=== PATIENT | male | born 1935 | race Caucasian/White ===

== ENCOUNTER → 2018-06-27 | Outpatient (REF) | payer MEDICARE ==
[2018-06-27 18:18] LABS: TOTAL PROTEIN,RANDOM URINE 25.2 MG/DL (0.0-12.0)
== END ==
LOC: M LAB REF 17:20
DX: N18.3 Chronic kidney disease, stage 3 (moderate) (principal); R80.1 Persistent proteinuria, unspecified
CPT/HCPCS: 84156

== ENCOUNTER → 2019-02-07 | Outpatient (REF) | payer MEDICARE ==
[~2019-02-07] MED LIST: ASPI-1 PO; DOCU10CA PO; LOSA25TA14 PO; METO1TAB32 PO; MIRA3350 PO; MULTCAP PO; NIAC500C PO; OMEP20CA3 PO; PRAV20TA2 PO; SERT-141 PO; TAMS0.4C2 PO
[2019-02-07 14:38] LABS: CHOLESTEROL RISK RATIO 4.236 (<5); FREE T4 0.84 NG/DL (0.76-1.46); THYROID STIMULATING HORMONE 1.34 uIU/ML (0.358-3.740); TOTAL 25(OH) VITAMIN D 26.5 NG/ML (30.0-100.0)
== END ==
LOC: M LAB REF 12:58
PROVIDERS: ATTEND Internal Medicine
DX: E78.2 Mixed hyperlipidemia (principal); N18.3 Chronic kidney disease, stage 3 (moderate)

== ENCOUNTER → 2019-08-11 | Outpatient (REF) | payer MEDICARE ==
[~2019-08-11] MED LIST changes: -OMEP20CA3 PO; +OMEP20CA4 PO
[2019-08-11 13:58] LABS: HEMOGLOBIN 11.8 g/dl (13.5-17.5); MEAN CORPUSCULAR HEMOGLOBIN 33.1 pg (27.0-33.0); MEAN CORPUSCULAR HGB CONC 32.8 g/dl (32.0-36.5); MEAN CORPUSCULAR VOLUME 100.8 fl (80.0-96.0); PLATELET COUNT, AUTOMATED 167 10^3/uL (150-450); RED BLOOD COUNT 3.57 10^6/uL (4.30-6.10); WHITE BLOOD COUNT 10.4 10^3/uL (4.0-10.0)
[2019-08-11 14:03] LABS: APPEARANCE, URINE TURBID (CLEAR); BACTERIA, URINE AUTO 1+ (NEGATIVE); BILIRUBIN, URINE AUTO NEGATIVE (NEGATIVE); BLOOD, URINE BLOOD 1+ (NEGATIVE); COLOR, URINE AMBER (YELLOW); GLUCOSE, URINE (UA) AUTO NEGATIVE (NEGATIVE); KETONE, URINE AUTO NEGATIVE (NEGATIVE); LEUKOCYTE ESTERASE, URINE AUTO 3+ (NEGATIVE); NITRITE, URINE AUTO NEGATIVE (NEGATIVE); PROTEIN, URINE AUTO 1+ mg/dL (NEGATIVE); RBC, URINE AUTO 29 /HPF (0-3); SPECIFIC GRAVITY URINE AUTO 1.012 (1.002-1.035); SQUAMOUS EPITHELIAL CELL UR AU 0 /HPF (0-6); UROBILINOGEN, URINE AUTO 0.2 mg/dL (0.0-2.0); WBC, URINE AUTO TNTC /HPF (0-3)
[2019-08-11 14:18] LABS: ALBUMIN 3.9 GM/DL (3.2-5.2); BILIRUBIN,TOTAL 0.3 MG/DL (0.2-1.0); CALCIUM LEVEL 9.3 MG/DL (8.8-10.2); CHOLESTEROL RISK RATIO 3.666 (<5); CREATININE FOR GFR 2.43 MG/DL (0.70-1.30); FREE T4 0.79 NG/DL (0.76-1.46); GLOMERULAR FILTRATION RATE 27.4 (>35); POTASSIUM SERUM 4.6 MEQ/L (3.5-5.1); THYROID STIMULATING HORMONE 1.31 uIU/ML (0.358-3.740)
[2019-08-11 16:24] LABS: TOTAL 25(OH) VITAMIN D 38.3 NG/ML (30.0-100.0)
== END ==
LOC: M LAB REF 13:26
PROVIDERS: ATTEND Internal Medicine
DX: I12.9 Hypertensive chronic kidney disease with stage 1 through stage 4 chronic kidney disease, or unspecified chronic kidney disease (principal); R80.1 Persistent proteinuria, unspecified
CPT/HCPCS: 80053; 80061; 81001; 82306; 84439; 84443; 85027; G0103

== ENCOUNTER → 2021-05-09 | Outpatient (REF) | payer MEDICARE ==
[~2021-05-09] MED LIST changes: +LOSA25TA13 PO; -LOSA25TA14 PO; -NIAC500C PO; +NIAC500C11 PO; +OMEP1CAP73 PO; -OMEP20CA4 PO
[2021-05-09 14:32] LABS: MAGNESIUM LEVEL 2.1 MG/DL (1.8-2.4); PERCENT SATURATION 35.8 % (19.7-50.0)
== END ==
LOC: M LAB REF 12:59
PROVIDERS: ATTEND Internal Medicine Nephrology
DX: N18.4 Chronic kidney disease, stage 4 (severe) (principal); E83.42 Hypomagnesemia; D63.1 Anemia in chronic kidney disease

== ENCOUNTER → 2021-09-14 | Outpatient (REF) | payer MEDICARE ==
[~2021-09-14] MED LIST changes: -LOSA25TA13 PO; +LOSA25TA14 PO
== END ==
LOC: M LAB REF 12:50
PROVIDERS: ATTEND Internal Medicine Nephrology
DX: N18.4 Chronic kidney disease, stage 4 (severe) (principal); E83.42 Hypomagnesemia

== ENCOUNTER → 2022-03-20 | Outpatient (REF) | payer MEDICARE ==
[~2022-03-20] MED LIST changes: +LOSA25TA13 PO; -LOSA25TA14 PO
[2022-03-20 17:38] LABS: PERCENT SATURATION 10.2 % (19.7-50.0)
== END ==
LOC: M LAB REF 16:40
PROVIDERS: ATTEND Internal Medicine Nephrology
DX: N18.9 Chronic kidney disease, unspecified (principal); D63.1 Anemia in chronic kidney disease

== ENCOUNTER 2022-03-28 12:19 | Outpatient (CLI) | payer MEDICARE ==
[~2022-03-28] VITALS: Ht 167.6 cm; Wt 85.0 kg
[~2022-03-28 12:19] MED LIST changes: +ALBUTEROL SULFATE 2.5 MG/0.5 ML INH NEB SOLN INH PRN; +EPINEPHrine INJ 1 MG/ML 1ML AMP IM PRN; +diphenhydrAMINE 50MG/ML VIAL (J1200) IV PRN; +methylPREDNISolone 125MG 2ML VIAL IV PRN
[2022-03-28 12:35] VITALS: BP 145/73
[2022-03-28] MEDS ORDERED: NS 1,000 ML IV SCH (13:00)
[2022-03-28] MEDS ORDERED: FERRIC CARBOXYMALTOSE INJ 750 MG in NS 250 ML (>50kg) IV ONE ×3 (13:00)
[2022-03-28 14:03] VITALS: BP 154/72
== END 2022-03-28 14:05 | disposition home or self-care (01) ==
LOC: M INFU 12:19
PROVIDERS: ATTEND Internal Medicine Nephrology
DX: E61.1 Iron deficiency (principal); Z88.0 Allergy status to penicillin
CPT/HCPCS: 96365; J1439

== ENCOUNTER 2022-04-03 13:43 | Outpatient (CLI) | payer MEDICARE ==
[~2022-04-03] VITALS: Ht 172.7 cm; Wt 84.1 kg
[2022-04-03] MEDS ORDERED: NS 1,000 ML IV SCH (14:00)
[2022-04-03] MEDS ORDERED: FERRIC CARBOXYMALTOSE INJ 750 MG in NS 250 ML (>50kg) IV ONE ×3 (14:00)
[2022-04-03 14:39] VITALS: BP 147/67
[2022-04-03 15:55] VITALS: BP 158/79
== END 2022-04-03 15:55 | disposition home or self-care (01) ==
LOC: M INFU 13:43
PROVIDERS: ATTEND Internal Medicine Nephrology
DX: E61.1 Iron deficiency (principal); Z88.0 Allergy status to penicillin
CPT/HCPCS: 96365; J1439